=== PATIENT | female | born 1935 | race Caucasian/White ===

== ENCOUNTER 2016-11-02 08:00 | Outpatient (CLI) | payer MEDICARE, OTHER | END 2016-11-02 08:01 | disposition home or self-care (01) | DX: M81.0 Age-related osteoporosis without current pathological fracture (principal); E55.9 Vitamin D deficiency, unspecified; I10 Essential (primary) hypertension ==

== ENCOUNTER 2016-12-12 10:49 | Outpatient (CLI) | payer MEDICARE, OTHER | END 2016-12-12 10:50 | disposition home or self-care (01) | DX: G47.33 Obstructive sleep apnea (adult) (pediatric) (principal); G47.00 Insomnia, unspecified | CPT/HCPCS: 99214; G0463 ==

== ENCOUNTER 2017-02-20 13:05 | Outpatient (CLI) | payer MEDICARE, OTHER | END 2017-02-20 13:06 | disposition home or self-care (01) | LOC: SC 13:05 | PROVIDERS: ATTEND Nurse Practitioner Family | DX: G47.33 Obstructive sleep apnea (adult) (pediatric) (principal) | CPT/HCPCS: 99214; G0463; 99212 ==

== ENCOUNTER 2017-02-28 13:49 | Outpatient (CLI) | payer MEDICARE, OTHER ==
[2017-02-28 18:37] LABS: BASOPHILS # (AUTO) 0.1 10^3/uL (0.0-0.1); EOSINOPHILS # (AUTO) 0.1 10^3/uL (0.0-0.7); EOSINOPHILS % (AUTO) 1.4 %; HCT - HEMATOCRIT 43.4 % (37.0-47.0); HGB - HEMOGLOBIN 14.5 g/dL (12.0-16.0); LYMPHOCYTES # (AUTO) 1.9 10^3/uL (1.5-3.5); LYMPHOCYTES % (AUTO) 32.5 %; MEAN CORPUSCULAR HEMOGLOBIN 32.7 pg (27.0-31.0); MEAN CORPUSCULAR HGB CONC 33.4 g/dL (32.0-36.0); MEAN CORPUSCULAR VOLUME 97.9 fL (81.0-99.0); MEAN PLATELET VOLUME 9.2 fL (7.9-10.8); MONOCYTES # (AUTO) 0.5 10^3/uL (0.0-1.0); MONOCYTES % (AUTO) 8.7 %; NEUTROPHILS # (AUTO) 3.3 10^3/uL (1.5-6.6); NEUTROPHILS % (AUTO) 56.4 %; NUCLEATED RED BLOOD CELLS AUTO 0.1 /100WBC; RED BLOOD COUNT 4.43 10^6/uL (4.20-5.40); RED CELL DISTRIBUTION WIDTH 13.4 % (12.0-15.0); UNCORRECTED WHITE BLOOD COUNT 5.8 x10^3/uL; WHITE BLOOD COUNT 5.8 x10^3/uL (4.8-10.8)
[2017-02-28 18:54] LABS: CALCIUM 8.8 mg/dL (8.5-10.3); CREATININE 0.9 mg/dL (0.4-1.0); POTASSIUM 3.6 mmol/L (3.5-5.0)
== END 2017-02-28 13:50 | disposition home or self-care (01) ==
LOC: LAB.F 13:49
PROVIDERS: ATTEND Internal Medicine
DX: N18.3 Chronic kidney disease, stage 3 (moderate) (principal); R01.0 Benign and innocent cardiac murmurs
CPT/HCPCS: 36415; 80048; 85025

== ENCOUNTER 2017-03-10 12:56 | Emergency (ER) | payer MEDICARE, OTHER ==
[2017-03-10 13:04] VITALS: BP 142/67
--- NOTE | 2017-03-10 13:30 | ED Physician Documentation ---
PD HPI LOWER EXT INJURY - Stated complaint Stated Complaint: BILAT LEG SWOLLEN - Chief complaint Chief Complaint: Ext Problem - History obtained from History obtained from: Patient - History of Present Illness PD HPI LOW EXT INJURY LOCATION: Both Type of injury: Other (she had eye surgery 5 days ago and was to sit up due to it and place face downward (in chair/sitting position) often through the day. Thus she has been with feet down much of the time and sleepping recliner. Has had edema in both legs increased over baseline. Called her eye doctor and was directed to ED by nurse for concern of DVT. She is not having pain in legs per se.) Timing - onset: How many days ago (increasing the past 3-4 days) Timing - details: Gradual onset, Still present Associated symptoms: Swelling. No: Weakness, Numbness Similar symptoms before: Has not had sx before Recently seen: Surgery (eye surgery 5 days ago) Review of Systems Constitutional: denies: Fever, Chills Cardiac: reports: Pedal edema. denies: Chest pain / pressure, Palpitations, Calf pain Respiratory: denies: Dyspnea, Cough, Wheezing GI: denies: Vomiting, Diarrhea, Bloody / black stool Skin: denies: Abrasion (s), Laceration (s) Neurologic: denies: Generalized weakness, Near syncope PD PAST MEDICAL HISTORY - Past Medical History Past Medical History: Yes Cardiovascular: Hypertension Respiratory: Sleep apnea, CPAP use Endocrine/Autoimmune: None GI: Colon polyps : Incontinence, Frequency Psych: Claustrophobia Musculoskeletal: Osteoarthritis Derm: Eczema - Past Surgical History Past Surgical History: No General: Cholecystectomy, Appendectomy HEENT: Cataracts - Present Medications Home Medications: Ambulatory Orders Medication Instructions Recorded Confirmed Telmisartan [Micardis] 89 mg PO .FREQ 07/08/13 03/10/17 Hydrochlorothiazide 25 mg PO .FREQ 11/06/13 03/10/17 Metoprolol Succinate [Toprol Xl] 100 mg PO ONCE 11/06/13 03/10/17 Lutein 10 mg PO DAILY 11/24/15 03/10/17 Nystatin 1 each TOP DAILY 11/24/15 03/10/17 Risedronate Sodium 35 mg PO OAW 03/10/17 03/10/17 - Allergies Allergies/Adverse Reactions: Allergies Allergy/AdvReac Type Severity Reaction Status Date / Time ciprofloxacin [From Cipro] Allergy Mild Rash Verified 11/24/15 16:45 ciprofloxacin HCl * Allergy Mild Rash Verified 11/24/15 16:45 [From Cipro] codeine [Codeine] Allergy Unknown unknown Verified 11/24/15 16:45 corn Allergy Unknown unknown Verified 11/24/15 16:45 lisinopril Allergy Unknown unknown Verified 11/24/15 16:45 procaine HCl * Allergy Unknown unknown Verified 11/24/15 16:45 [From Novocain] losartan potassium * AdvReac Severe Unknown Verified 11/24/15 16:45 [From Cozaar] Tape Allergy Unknown unknown Uncoded 11/24/15 16:45 wheat Allergy Unknown unknown Uncoded 11/24/15 16:45 - Social History Does the pt smoke?: No Smoking Status: Never smoker Does the pt drink ETOH?: No Does the pt have substance abuse?: No - Immunizations Immunizations are current?: Yes PD ED PE NORMAL - Vitals Vital signs reviewed: Yes - General General: Alert and oriented X 3, No acute distress, Well developed/nourished - Neck Neck: Supple, no meningeal sign, No adenopathy, No JVD - Cardiac Cardiac: RRR, No murmur - Respiratory Respiratory: Clear bilaterally (no crackles/rales) - Abdomen Abdomen: Soft, Non tender - Derm Derm: Normal color, Warm and dry - Extremities Extremities: No calf tenderness / cord, Other (2+ edema in both lower legs up to proximal shins, pitting. Some chronic stasis color changes lower part and above ankles. Normal color, cap refill in toes. Palpable DP pulses in feet. ) - Neuro Neuro: Alert and oriented X 3, No motor deficit, Normal speech Results - Vitals Vitals: Vital Signs - 24 hr 03/10/17 13:01 Temperature 36.4 C L Heart Rate 75 Respiratory 18 Rate Blood Pressure 142/67 H O2 Saturation 95 Oxygen O2 Source Room air - Labs Labs: Laboratory Tests 03/10/17 14:10 Sodium 139 Potassium 3.9 Chloride 104 Carbon Dioxide 28 Anion Gap 7.0 BUN 30 H Creatinine 1.1 H Estimated GFR (MDRD) 48 L Glucose 119 H Calcium 9.0 Magnesium 1.9 Total Bilirubin 0.3 AST 21 ALT 19 Alkaline Phosphatase 65 Total Protein 6.2 L Albumin 3.4 Globulin 2.8 Albumin/Globulin Ratio 1.2 Lipase 48 - Rads (name of study) duplex U/S Radiology: Prelim report reviewed (no DVT) PD MEDICAL DECISION MAKING - ED course Complexity details: considered differential (not really tender in calves, but is at risk for DVT, so got U/S which showed patent flow. Presume edema is from gravity of sitting up too much with feet down (due to recent eye surgery). She can elevate legs more and can use compressive stockings. Does not seem fluid overloaded per se, so would not change her diuretic. ), d/w patient, d/w family (daughter) Departure - Departure Disposition: Home, Self Care Clinical Impression: Bilateral leg edema, Lateral pain of left hip Clinical Impression: (Ruled Out): Deep vein thrombosis Condition: Stable Record reviewed to determine appropriate education?: Yes Instructions: ED Edema Legs Bilateral Follow-Up: Fernando Ruelas MD [Primary Care Provider] - Comments: No signs of blood clots on the ultrasound at this time. Elevate your legs periodically through the day. Try some compressive stockings (knee high) to help reduce the swelling. Continue usual medications. Presume the swelling is from having had your legs down more. It should improve as you elevate the legs more. For the hip pain, use some Ibuprofen 400 mg twice daily for 5 days and add Tylenol to it 3-4 times daily as needed. Discharge Date/Time: 03/10/17 16:00
[2017-03-10 14:27] LABS: ALBUMIN/GLOBULIN RATIO 1.2 (1.0-2.2); BILIRUBIN,TOTAL 0.3 mg/dL (0.2-1.0); CREATININE 1.1 mg/dL (0.4-1.0); MAGNESIUM 1.9 mg/dL (1.7-2.8); POTASSIUM 3.9 mmol/L (3.5-5.0); TOTAL PROTEIN 6.2 g/dL (6.7-8.2)
--- NOTE | 2017-03-10 15:21 | Ultrasound Preliminary Report ---
Exam: US Duplex Ext Veins Bilateral IMPRESSION: 1. No evidence of right or left lower extremity deep venous thrombosis. [facility] SITE ID: [id number]
--- NOTE | 2017-03-10 15:23 | Ultrasound Report ---
EXAM: BILATERAL LOWER EXTREMITY VENOUS ULTRASOUND EXAM DATE: 03/10/2017 02:57 PM. CLINICAL HISTORY: Legs swelling, 5 days after eye surgery. COMPARISON: None. TECHNIQUE: Real-time sonographic vascular imaging was performed by the electronic security technician through the lower extremities utilizing both color-flow and Doppler spectral analysis. Multiple used equipment sales representative static i mages were saved for review. FINDINGS: Right: Common Femoral Vein (CFV): Normal. CFV-GSV Junction: Normal. Profunda Femoral Vein (PFV): Normal. Femoral Vein (FV) Prox: Normal. Femoral Vein (FV) Mid: Normal. Femoral Vein (FV) Dist: Normal. Popliteal Vein: Normal. Posterior Tibial Veins: Normal. Peroneal Veins: Normal. Left: Common Femoral Vein (CFV): Normal. CFV-GSV Junction: Normal. Profunda Femoral Vein (PFV): Normal. Femoral Vein (FV) Prox: Normal. Femoral Vein (FV) Mid: Normal. Femoral Vein (FV) Dist: Normal. Popliteal Vein: Normal. Posterior Tibial Veins: Normal. Peroneal Veins: Normal. Other: None. IMPRESSION: 1. No evidence of right or left lower extremity deep venous thrombosis. [facility] Referring Provider Line: [phone] SITE ID: [id number]
[2017-03-10] MEDS ORDERED: IBUPROFEN 400 MG TABLET PO STA (15:42)
[2017-03-10] MEDS ORDERED: ACETAMINOPHEN 325 MG TABLET PO STA (15:42)
[2017-03-10] MEDS ORDERED: ACETAMINOPHEN 325 MG TABLET PO ONE (15:44)
[2017-03-10] MEDS ORDERED: IBUPROFEN 400 MG TABLET PO ONE (15:44)
== END 2017-03-10 16:00 | disposition home or self-care (01) ==
LOC: ED 12:56
DX: R60.1 Generalized edema (principal); M25.552 Pain in left hip; I10 Essential (primary) hypertension; G47.30 Sleep apnea, unspecified; Z86.010 Personal history of colon polyps; M19.90 Unspecified osteoarthritis, unspecified site
CPT/HCPCS: 36415; 80053; 83690; 83735; 93970; 99283; A9270

== ENCOUNTER 2017-04-24 13:29 | Outpatient (CLI) | payer MEDICARE, OTHER | END 2017-04-24 13:30 | disposition home or self-care (01) | LOC: SC 13:29 | PROVIDERS: ATTEND Nurse Practitioner Family | DX: G47.33 Obstructive sleep apnea (adult) (pediatric) (principal) | CPT/HCPCS: 99214; G0463; 99212 ==

== ENCOUNTER 2017-07-09 14:57 | Outpatient (CLI) | payer MEDICARE, OTHER | END 2017-07-09 14:58 | disposition home or self-care (01) | LOC: SC 14:57 | PROVIDERS: ATTEND Nurse Practitioner Family | DX: G47.33 Obstructive sleep apnea (adult) (pediatric) (principal) | CPT/HCPCS: 99214; G0463; 99212 ==

== ENCOUNTER 2017-12-30 12:53 | Outpatient (CLI) | payer MEDICARE, OTHER ==
--- NOTE | 2017-12-31 17:32 | DEXA Report ---
DEXA SCAN: 12/30/2017 CLINICAL INDICATION: Osteoporosis. TECHNIQUE: Dual energy x-ray absorptiometry (DXA) was performed on a [employer] system. Regions measured are the AP spine, femoral neck, and, if needed, forearm. COMPARISON: None. In accordance with the International Society for Clinical Densitometry (ISCD) guidelines, data from previous exams may be reanalyzed using current recommendations and techniques. This is done to allow a more accurate basis for comparison with the current study. FINDINGS The data for the lumbar spine is as follows: REGION BMD (g/cm/cm) T-SCORE Z-SCORE L1 0.834 -2.5 -1.7 L2 0.808 -3.3 -2.5 L3 1.030 -1.4 -0.6 L4 0.971 -1.9 -1.1 L1-L4 0.911 -2.2 -1.4 L2-L4 0.932 -2.2 -1.4 NOTE: All evaluable vertebrae are used for classification. The data for the hip is as follows: REGION BMD (g/cm/cm) T-SCORE Z-SCORE Neck 0.780 -1.9 -0.3 TOTAL 0.811 -1.6 -0.2 NOTE: The femoral neck or total proximal femur, whichever is lowest, is used for classification. IMPRESSION WHO CLASSIFICATION BASED ON THE INTERNATIONAL REFERENCE STANDARD IS OSTEOPENIA. FRACTURE RISK IS INCREASED. RECOMMENDATION: Patients with diagnosis of osteoporosis or osteopenia should have regular bone mineral density assessment. For those eligible for Medicare, routine testing is allowed once every 2 years. Testing frequency can be increased for patients who have rapidly progressing disease or for those who are receiving medical therapy to restore bone mass. COMMENT World Health Organization (WHO) definitions for osteoporosis and osteopenia: NORMAL BMD: T-score at 1.0 or higher, fracture risk is low. OSTEOPENIA BMD: T-score between 1.0 and -2.5, fracture risk is increased. OSTEOPOROSIS BMD: T-score at 2.5 or lower, fracture risk high. National Osteoporosis Foundation recommends: 1. Obtain adequate dietary calcium (at least 1200 mg per day) and vitamin D (400 -800 international units per day). 2. Participate, as appropriate, in regular weightbearing and muscle- strengthening exercise. 3. Avoid tobacco use and reduce alcohol and caffeine intake. 4. For more detailed information see the website at www.NOF.org. TD: 12/30/2017 14:07 YOMAIRA
== END 2017-12-30 12:54 | disposition home or self-care (01) ==
LOC: DI 12:53
PROVIDERS: ATTEND Internal Medicine
DX: M81.0 Age-related osteoporosis without current pathological fracture (principal)
CPT/HCPCS: 77080

== ENCOUNTER 2018-04-22 08:22 | Outpatient (CLI) | payer MEDICARE, OTHER ==
[2018-04-22 11:52] LABS: BUN - BLOOD UREA NITROGEN 15 mg/dL (6-20); CALCIUM 8.9 mg/dL (8.5-10.3); CARBON DIOXIDE - CO2 31 mmol/L (21-32); CHLORIDE 100 mmol/L (101-111); CHOLESTEROL 173 mg/dL; CREATININE 0.9 mg/dL (0.4-1.0); GFR - MDRD 60 (>89); GLUCOSE 96 mg/dL (70-100); HDL CHOLESTEROL 58 mg/dL; LDL CHOLESTEROL,CALCULATED 93 mg/dL; LDL/HDL RATIO 1.6 (<4.4); SODIUM 137 mmol/L (135-145); VLDL CHOLESTEROL 22 mg/dL
== END 2018-04-22 08:23 | disposition home or self-care (01) ==
LOC: LAB.F 08:22
PROVIDERS: ATTEND Internal Medicine
DX: I10 Essential (primary) hypertension (principal); Z13.1 Encounter for screening for diabetes mellitus
CPT/HCPCS: 36415; 80048; 80061; 83036; 83721

== ENCOUNTER 2018-07-29 06:55 | Outpatient (CLI) | payer MEDICARE, OTHER | END 2018-07-29 06:56 | disposition EMS.NT | LOC: EMS 06:55 | PROVIDERS: ATTEND Surgery | DX: M53.3 Sacrococcygeal disorders, not elsewhere classified (principal); W18.39XA Other fall on same level, initial encounter; Y92.032 Bedroom in apartment as the place of occurrence of the external cause ==

== ENCOUNTER 2018-07-29 13:37 | Outpatient (CLI) | payer MEDICARE, OTHER | END 2018-07-29 13:38 | disposition short-term general hospital (02) | LOC: EMS 13:37 | PROVIDERS: ATTEND Surgery | DX: R41.82 Altered mental status, unspecified (principal); M54.2 Cervicalgia; R11.0 Nausea | CPT/HCPCS: A0425; A0427 ==

== ENCOUNTER 2018-12-17 14:51 | Outpatient (CLI) | payer MEDICARE, OTHER | END 2018-12-17 14:52 | disposition home or self-care (01) | LOC: SC 14:51 | PROVIDERS: ATTEND Nurse Practitioner Family | DX: G47.33 Obstructive sleep apnea (adult) (pediatric) (principal) | CPT/HCPCS: 99214; G0463; 99212 ==

== ENCOUNTER 2020-05-16 15:39 | Outpatient (CLI) | payer MEDICARE, OTHER ==
--- NOTE | 2020-05-16 16:08 | SLEEP CARE CONSULTATION ---
Information from patient questionnaire entered by Brandi Valentino. I have reviewed and concur with the information entered by Brandi Valentino. This document represents the service I personally performed and the decisions made by me, Samantha Agrawal RN, MSN, TRANSPORTATION AGENT. History of Present Illness Service Date and Time: 05/16/2020 1539 Previous diagnosis: Severe, Obstructive Sleep Apnea-Hypopnea Syndrome AHI: 46.8 Reason for follow up: other (2-month followup) Equipment type: CPAP Equipment obtained from: [employer] Mask style: Full face Prior sleep studies: Yes Year and Where: 2012 [facility] Type of Sleep Study: Polysomnography Sleep Study - Results Prior sleep studies: Yes Year and Where: 2012 [facility] CPAP Compliance Data - Data Reviewed with Patient Average duration of nightly device use: 7 h 9 min Compliance rate %: 100 Current pressure setting (cmH2O): 12-15 Humidity settin Heated hose settin Average residual AHI: 17.2 Central apnea: 1.9 Obstructive apnea: 7.6 Hypopnea: 7.6 Average large leak: 1 h 28 min Subjective Patient concerns: reports: air blowing in eyes, mask leak noise, dry mouth, nose, throat. denies: aerophagia, mask discomfort, condensation in mask/hose, nasal congestion, epistaxis Current pressure setting perceived as: comfortable On therapy, patient: reports: more rested overall (but still fatigued). denies: drowsiness while driving (not driving ) Initial [place] Sleepiness Scale score: 14 (in 2012) Allergies and Home Medications Known drug allergies: No Home medication list reviewed: No (nochanges) Review of Systems Review of systems same as previous: Yes Physical Exam Height: 5 ft 8 in Weight: 200 lb (home weight - stable) Body Mass Index: 30.4 BMI Classification: Obese Impression and Plan 1. Obstructive Sleep Apnea-Hypopnea Syndrome, severe, with good treatment compliance and elevated moderate residual AHI. On CPAP therapy, the patient is more rested overall. Pressure change reduced AHI some. She had her current mask refitted but not new style. The patients pressure will be changed to autoCPAP 15 cmH20 For elevation of residual AHI after review of compliance reports the last couple of years. Patient advised to contact me if pressure change is uncomfortable so that it can be adjusted. Goals for apnea control discussed. Mask refitting also ordered but to change style to a nasal mask as her best residual AHI found on nasal mask. In addition a chinstrap fitting will be completed to assist keep her mouth closed and reduce oral dryness. It has been found that sometimes a full face mask can cause increased apnea by pushing jaw back. Oral dryness can be reduced by adjusting humidity setting higher or heated hose lower or by adjusting both settings. I will have [facility] RT show patient how to change. Patient's apnea severity and rationale for treatment to reduce apnea, improve sleep quality and reduce cardiovascular and cerebrovascular events was reviewed. I also reviewed the benefit of consistent device use of CPAP for hypertension. * * Change CPAP pressure to 15 cmH2O * Mask and chinstrap fitting * Instruct how to adjust humdity and heated hose. * Notify me if snoring with mask or feeling that the pressure is too much or too little * Attempt to lose weight * Call this office if any problems using CPAP * Return for follow up in 1-2 months , or sooner if concerns arise Visit Type: Telehealth Phone Patient Location: Home Patient agrees and consents to this telehealth visit type: Yes Patient agrees to have their insurance billed: Yes Time Spent with Patient (minutes): 15 Provider Statement: I spent 100% of the Telehealth Phone Call with the patient with greater than 50% spent counseling the patient and coordination of care.
== END 2020-05-16 15:40 | disposition home or self-care (01) ==
LOC: SC 15:39
PROVIDERS: ATTEND Nurse Practitioner Family
DX: G47.33 Obstructive sleep apnea (adult) (pediatric) (principal); E66.9 Obesity, unspecified; Z68.30 Body mass index [BMI] 30.0-30.9, adult

== ENCOUNTER 2020-07-06 12:03 | Outpatient (CLI) | payer MEDICARE, OTHER ==
--- NOTE | 2020-07-06 11:57 | SLEEP CARE CONSULTATION ---
Information from patient questionnaire entered by Brandy Thorne. I have reviewed and concur with the information entered by Brandy Thorne. This document represents the service I personally performed and the decisions made by me, Samantha Agrawal, RN, MSN, SKID ROAD MAN. History of Present Illness Service Date and Time: 07/06/2020 1100 Previous diagnosis: Severe, Obstructive Sleep Apnea-Hypopnea Syndrome AHI: 46.8 (in 2013) Reason for follow up: other (2 month with pressure change) Equipment type: CPAP Equipment obtained from: [employer] Mask style: Full face Last cushion change: 1st of month Prior sleep studies: Yes Year and Where: 2013 - [facility] Type of Sleep Study: Polysomnography CPAP Compliance Data - Data Reviewed with Patient Average duration of nightly device use: 6 hr 51 min Compliance rate %: 93.3 (60 days) Current pressure setting (cmH2O): 15 Humidity settin Heated hose settin Average residual AHI: 18.6 Central apnea: 1.7 Obstructive apnea: 9.7 Hypopnea: 7.2 Average large leak: 53 min 27 sec Subjective Patient concerns: reports: mask leak noise, dry mouth, nose, throat. denies: aerophagia, mask discomfort, air blowing in eyes, condensation in mask/hose, nasal congestion, epistaxis, other Observed to snore while using device: No Current pressure setting perceived as: comfortable On therapy, patient: reports: sleeping better. denies: drowsiness while driving (does not drive) Initial [place] Sleepiness Scale score: 14 (in 2012) Allergies and Home Medications Home medication list reviewed: No (no changes stated ) Review of Systems Review of systems same as previous: Yes Physical Exam Height: 5 ft 8 in Impression and Plan 1. Obstructive Sleep Apnea-Hypopnea Syndrome, severe, with good treatment compliance and moderate elevation of residual AHI despite CPAP pressure adjustment and reduced mask leaks. On CPAP therapy, the patient has better sleep quality but is not feeling more rested that could be from the sleep disruption from mask leaks. She is finding it hard to adjust mask intermittently to resolve mask leaks. She also states that it is hard to change her mask cushion monthly. The mask leaks could also be contributing to her oral dryness. Thus I will again order a mask refitting. Perhaps a new style will be more beneficial. Her last mask fitting the RT adjusted her mask. In addition, I will have the RT adjust her humidity and heated hose to reduce oral dryness further. The patients pressure will be changed to auto CPAP 17-18 cmH20 For elevation of residual AHI. Patient advised to contact me if pressure change is uncomfortable so that it can be adjusted. Goals for apnea control discussed. Patient's apnea severity and rationale for treatment to reduce apnea, improve sleep quality and reduce cardiovascular and cerebrovascular events was reviewed. The patient was set up with a video visit but her cell phone is hard for her to use and is not a smart phone so a telephone visit was instead completed per patient request. Due to connection / hearing issues, had to be redialed. * * Change auto CPAP pressure to 17-18 cmH2O * Mask refitting * Notify me if snoring with mask or feeling that the pressure is too much or too little * Attempt to lose weight * Call this office if any problems using CPAP * Return for follow up in 1-2 months , or sooner if concerns arise Visit Type: Telehealth Phone Video Type: Doximity Location of Provider: Home Patient agrees and consents to this telehealth visit type: Yes Patient agrees to have their insurance billed: Yes Time Spent with Patient (minutes): 12 Provider Statement: I spent 100% of the Telehealth Phone Call with the patient with greater than 50% spent counseling the patient and coordination of care.
== END 2020-07-06 12:04 | disposition home or self-care (01) ==
LOC: SC 12:03
PROVIDERS: ATTEND Nurse Practitioner Family
DX: G47.33 Obstructive sleep apnea (adult) (pediatric) (principal)

== ENCOUNTER 2020-08-10 12:09 | Outpatient (CLI) | payer MEDICARE, OTHER ==
--- NOTE | 2020-08-10 11:56 | SLEEP CARE CONSULTATION ---
Information from patient questionnaire entered by Brandy Thorne. I have reviewed and concur with the information entered by Brandy Thorne. This document represents the service I personally performed and the decisions made by me, Samantha Agrawal, RN, MSN, ELOCUTION TEACHER. History of Present Illness Service Date and Time: 08/10/2020 1100 Previous diagnosis: Severe, Obstructive Sleep Apnea-Hypopnea Syndrome AHI: 46.8 (in 2013) Reason for follow up: one month Equipment type: CPAP Equipment obtained from: [employer] Mask style: Full face Last cushion change: 1st of the month Prior sleep studies: Yes Year and Where: 2013 - Located within [facility] Type of Sleep Study: Polysomnography HPI additional information: I reviewed past visit note to prepare for this visit. Patient is only able to do a televisit at this time as noted at last visit. The CPAP pressure was changed to autoCPAP [id number] to treat moderate elevation of residual AHI. A mask refitting was ordered to assist with patient mask leaks that could be from difficulty changing mask cushion and ability to adjust headgear. The RT was also to adjust her humidity and heated hose to reduce oral dryness. When I reviewed the above with patient, the new pressure is comfortable. She had questions as to specifics of changes in compliance AHI since new pressure and was pleased with the results. She continues to struggle with getting the mask to seal most nights. She has some very good nights where she slept through without mask problems. But states no matter how well she sleeps, she is very tired during the day and will doze. It is unknown how long her increase in fatigue has been per patient. When asked, her last follow up with her PCP was before COVID pandemic and all labs were good. She also asked about trying a nasal mask again. She remembers using a nasal mask in the past and does not recall why it was changed to full face mask. She knows she did not use a chinstrap with the nasal mask as she did not like it. She has oral dryness day and night and it seems a little better at night since changes to humidity / heated hose. CPAP Compliance Data - Data Reviewed with Patient Average duration of nightly device use: 5 hr 26 min Compliance rate %: 76.7 Current pressure setting (cmH2O): 17-18 Humidity settin Heated hose settin Average residual AHI: 13.9 (90% pressure is 17.2cmH20) Central apnea: 0.6 Obstructive apnea: 5.3 Hypopnea: 10.1 Average large leak: 2 hr 43 min Subjective Patient concerns: reports: mask leak noise (most nights), dry mouth, nose, throat. denies: aerophagia, mask discomfort, air blowing in eyes, nasal congestion, epistaxis Observed to snore while using device: No Current pressure setting perceived as: comfortable On therapy, patient: reports: sleeping better (intermittently but still very tired even if slept well. ) Initial [place] Sleepiness Scale score: 14 (in 2012) Allergies and Home Medications Home medication list reviewed: Yes (no changes except added vitamins) Review of Systems Review of systems same as previous: Yes Physical Exam Height: 5 ft 8 in Impression and Plan 1. Obstructive Sleep Apnea-Hypopnea Syndrome, severe, with good treatment compliance and elevation of residual AHI. The residual has reduced from 21 to 13.9 on the new autoCPAP range. On CPAP therapy, the patient has better sleep quality intermittently but is not feeling any more rested. The patients pressure will be changed to autoCPAP 18-19 cmH20 For elevation of residual AHI. The higher pressure is causing more mask leaks but resulting in better control of her apnea and patient agreed with plan. Patient advised to contact me if pressure change is uncomfortable so that it can be adjusted. Goals for apnea control discussed. I will also have her mask again refitted but in recumbent position as patient states this has been done with her sitting up. Hopefully this will assist in reduction of mask leaks. I also checked several of her past notes after her telehealth visit to see why her nasal mask was stopped and changed to current style. It appears mask change to full face mask was to assist with oral dryness. Patient recalls not liking a chinstrap but notes reflect that she was having difficulty getting a chinstrap from past [employer] vendor. Thus I will have her fitted with a nasal mask and chinstrap as indicated to see if more comfortable for her in fit, mask leaks and oral dryness. For chronic oral dryness, she is advised to consider an oral dryness product and given several names. She is also to check with her dentist as to best options. 2. Fatigue, She reports she has had increased fatigue and sleepiness symptoms for unknown period of time. Last seen by her PCP was before pandemic early this year. She states at that time her labs were normal and no concerns. The reduction of residual AHI with pressure change did not reduce fatigue. Though is it still elevated above goal of below 5 and could be a contributing cause which is addressed above. I advised her to follow up with her PCP for further evaluation of her increased sleepiness symptoms and she agreed with plan. * * Changeauto CPAP pressure to 18-19 cmH2O * mask refitting * Implement methods to reduce oral dryness. * Notify me if snoring with mask or feeling that the pressure is too much or too little * Follow up with PCP for further evaluation of fatigue. * Return for follow up in 1-2 months , or sooner if concerns arise Visit Type: Telehealth Phone ([facility]) Patient Location: Home Location of Provider: Home Patient agrees and consents to this telehealth visit type: Yes Patient agrees to have their insurance billed: Yes Time Spent with Patient (minutes): 14 Provider Statement: I spent 100% of the Telehealth Phone Call with the patient with greater than 50% spent counseling the patient and coordination of care.
== END 2020-08-10 12:10 | disposition home or self-care (01) ==
LOC: SC 12:09
PROVIDERS: ATTEND Nurse Practitioner Family
DX: G47.33 Obstructive sleep apnea (adult) (pediatric) (principal)

== ENCOUNTER 2020-09-09 13:02 | Outpatient (CLI) | payer MEDICARE, OTHER ==
[2020-09-09 11:55] VITALS: BP 120/70
--- NOTE | 2020-09-09 11:55 | SLEEP CARE CONSULTATION ---
Information from patient questionnaire entered by Brandy Thorne. I have reviewed and concur with the information entered by Brandy Thorne. This document represents the service I personally performed and the decisions made by me, Samantha Agrawal, RN, MSN, HR REPRESENTATIVE. History of Present Illness Service Date and Time: 09/09/2020 1100 Previous diagnosis: Severe, Obstructive Sleep Apnea-Hypopnea Syndrome AHI: 46.8 (in 2012) Reason for follow up: one month (with pressure change) Equipment type: CPAP Equipment obtained from: [employer] Mask style: Full face (new mask given 08/23/20 but new nasal mask not comfortable and large mask leaks despite adjustment/ unable to use chinstrap in past) Backup mask available: Yes (old mask ) Last cushion change: 1 month Prior sleep studies: Yes Year and Where: 2012 - [facility] Type of Sleep Study: Polysomnography HPI additional information: I reviewed past titration study detailed results and several of follow up visits and pressure changes and results from 10/02 to last month. Data summarized below to assist with this visit. Titration showed that she slept most of time on [id number] with good control of apnea even in REM sleep. She wore a sm/med Wisp nasal mask. Humidity and heated hose 2/2 and CFLEX 3. Wt 190 Last weight recorded 200 pounds/ Mask style order after 01/04 was to add a chinstrap or try a full face mask. Full face mask first noted in 03/14/20 note and large mask leaks of 1 hour 17 minutes. Pressure started to be elevated for complaint of air hunger. Then adjusted for increased residual AHI. Of all the pressures reviewed thus far, it seems [id number] has the best residual AHI and the least mask leaks with more time spent sleeping on that pressure. Oral dryness both day and night have been reported and addressed with adjustment of humidity / heated hose and updated CPAP when indicated as had a better humidity system. Patient states she had a elevated blood pressure to 200 at dentist 09/06/20 so tooth not pulled as planned. Notified PCP and monitoring blood pressure frequently since with highest blood pressure 170 immediately after dentist 09/06/20 but in normal range since. Reviewed ER precautions, patient states aware. Has appointment with PCP 09/12/20. Blood pressure normal range today 120/70. CPAP Compliance Data - Data Reviewed with Patient Average duration of nightly device use: 5 hr 12 min Compliance rate %: 76.7 Current pressure setting (cmH2O): 18-19 Humidity settin Heated hose settin Average residual AHI: 15.6 (90% pressure 18.2cmH20) Central apnea: 0.4 Obstructive apnea: 1.1 Hypopnea: 13.5 Average large leak: 2 hr 49 min Subjective Patient concerns: reports: mask discomfort, air blowing in eyes (wears eye mask protection), mask leak noise (waking to mask leaks frequently affecting ability to sleep. ), dry mouth, nose, throat (dry mouth day and night continues - worse with CPAP / no oral rinses ), other (nasal mask did not work- ). denies: aerophagia, condensation in mask/hose, nasal congestion, epistaxis Observed to snore while using device: No (not waking to snore ) Current pressure setting perceived as: comfortable On therapy, patient: reports: sleeping better (when mask fits / uses bathroom 1- 3 times goes right back to sleep.), being more awake and alert during the day, more rested overall. denies: awakening more refreshed, drowsiness while driving (does not drive) Initial [place] Sleepiness Scale score: 14 (in 2012) Allergies and Home Medications Known drug allergies: Yes Home medication list reviewed: No (states no change since last vist=it ) Review of Systems Review of systems same as previous: No ([facility]- [facility] -appt PCP 09/12/20 ) Physical Exam Blood Pressure: 120/70 (by patient today) Height: 5 ft 8 in Weight: 195 lb (lost a few pounds ) Body Mass Index: 29.6 BMI Classification: Overweight Impression and Plan 1. Obstructive Sleep Apnea-Hypopnea Syndrome, severe, with good treatment compliance and apnea control. On CPAP therapy, the patient has better sleep quality and is more rested overall. Patient has been struggling with finding a mask that fits well and is waking often to mask leaks. Mask leaks also seem to be contributing to her elevation of residual. After reviewing several visit notes and her titration study results, I will change her mask back to the Wisp nasal mask as she had the best results in comfort, control of mask leaks and best control of residual AHI. I will also change her autoCPAP pressure to [id number]. I informed patient that if mask and pressure do not have better outcome then a manual titration study is indicated. Oral dryness can be reduced by reducing mask leaks and perhaps reducing heated hose as humidity is at maximum. Patient advised that chronic oral dryness can affect dental health and advised to follow up with dentist. In addition, there are oral dryness products that can be used to reduce dryness such as Biotene products, Dry mouth rinse and Xylomelts. Patient to discuss best option with dentist.Patient's apnea severity and rationale for treatment to reduce apnea, improve sleep quality and reduce cardiovascular and cerebrovascular events was reviewed. I also reviewed the benefit of consistent device use of CPAP for hypertension. * Change auto CPAP pressure to 11-14 cmH2O * Change mask to Wisp nasal mask * Implement methods to reduce oral dryness. * Notify me if snoring with mask or feeling that the pressure is too much or too little * Call this office if any problems using CPAP * follow up with PCP as planned for blood pressure evaluation, bring monitoring records. * Return for follow up in 1-[address] Murphy, or sooner if concerns arise Visit Type: Telehealth Phone ([employer]) Patient Location: Home Location of Provider: Home Patient agrees and consents to this telehealth visit type: Yes Patient agrees to have their insurance billed: Yes Time Spent with Patient (minutes): 30 plus 15 minutes review past sleep records to assist with visit Provider Statement: I spent 100% of the Telehealth Phone Call with the patient with greater than 50% spent counseling the patient and coordination of care.
== END 2020-09-09 13:03 | disposition home or self-care (01) ==
LOC: SC 13:02
PROVIDERS: ATTEND Nurse Practitioner Family
DX: G47.33 Obstructive sleep apnea (adult) (pediatric) (principal)

== ENCOUNTER 2021-10-05 14:23 | Outpatient (CLI) | payer MEDICARE, OTHER ==
--- NOTE | 2021-10-05 14:33 | SLEEP CARE CONSULTATION ---
Information from patient questionnaire entered by Hector Shelley MA. I have reviewed and concur with the information entered by Hector Shelley MA. This document represents the service I personally performed and the decisions made by , Daksha Win ARNP. History of Present Illness Service Date and Time: 10/05/2021 1423 Previous diagnosis: Severe, Obstructive Sleep Apnea-Hypopnea Syndrome AHI: 46.8 (in 2012) Reason for follow up: annual (LAST SEEN 08/2020,), other (LAST SEEN 08/2020 ) Equipment type: CPAP Equipment obtained from: [employer] (getting supplies as needed) Mask style: Nasal (over the nose) Backup mask available: Yes (old mask) Last cushion change: yesterday Prior sleep studies: Yes Year and Where: 2012 - [facility] Type of Sleep Study: Polysomnography HPI additional information: JASON TORRES was diagnosed to have severe, AHI 46.8, obstructive sleep apnea- hypopnea syndrome and returns via video telehealth visit today for CPAP therapy annual follow-up. Sleep Study - Results Type of Sleep Study: Polysomnography Prior sleep studies: Yes Year and Where: 2013 - [facility] CPAP Compliance Data - Data Reviewed with Patient Average duration of nightly device use: 7 HOURS 35 MINUTES Compliance rate %: 98.3 Current pressure setting (cmH2O): 12-16 Humidity settin Heated hose settin Average residual AHI: 10.9 Average large leak: 5 MINUTES 1 SECONDS Subjective Patient concerns: reports: dry mouth, nose, throat (using a lot of water), other (mouth is coming open). denies: aerophagia, mask discomfort, air blowing in eyes, mask leak noise, condensation in mask/hose, nasal congestion, epistaxis Observed to snore while using device: No Current pressure setting perceived as: comfortable On therapy, patient: reports: sleeping better, awakening more refreshed, being more awake and alert during the day, more rested overall, other (she is having more tiredness during the day and noted elevated AHI). denies: drowsiness while driving Initial [place] Sleepiness Scale score: 14 (in 2011) Current [place] Sleepiness Scale score: 14 Allergies and Home Medications Home medication list reviewed: Yes (no changes) Allergy and home medication list: Allergies ciprofloxacin [From Cipro] Allergy (Mild, Verified 11/24/15 16:45) Rash ciprofloxacin HCl * [From Cipro] Allergy (Mild, Verified 11/24/15 16:45) Rash codeine [Codeine] Allergy (Unknown, Verified 11/24/15 16:45) unknown corn Allergy (Unknown, Verified 11/24/15 16:45) unknown lisinopril Allergy (Unknown, Verified 11/24/15 16:45) unknown procaine HCl * [From Novocain] Allergy (Unknown, Verified 11/24/15 16:45) unknown losartan potassium * [From Cozaar] Adverse Reaction (Severe, Verified 11/24/15 16:45) Unknown Tape Allergy (Unknown, Uncoded 11/24/15 16:45) unknown wheat Allergy (Unknown, Uncoded 11/24/15 16:45) unknown Review of Systems Review of systems same as previous: Yes (no changes) Physical Exam Vital signs obtained and entered by: Telehealth visit Height: 5 ft 8 in Impression and Plan 1. Obstructive Sleep Apnea-Hypopnea Syndrome, severe, with good treatment compliance and fair apnea control with elevated residual AHI. On CPAP therapy, the patient has better sleep quality and is more rested overall. Her AHI is elevated but after reviewing her chart the past few years her residual AHI is the best in today's report. I will not make any pressure changes at this time. Patient has been using a nasal mask but her mouth is getting very dry. She has not been able to use the chin strap to keep mouth closed. She thinks she may need to change back to a full face mask but has no supplies. I will write for a mask refitting for the full face masks. Patient has a Dreamstation that appears to have been set up in 2013. Patient has already registered their device for the recall. Patient denies any black particles seen in machine or hoses, any unusual odors coming from device. Patient has not experienced any physical symptoms such as upper airway irritation, headache, skin or eye irritation, asthma, nausea/vomiting, difficulty breathing or chest pain. If patient is not able to sleep due to waking up choking, gasping for air or other respiratory distress that they may decide to continue using it until it is either replaced or repaired. Since the patients current machine is at least 5 years old, the patient is opting to update their device with a device that is not on the recall. Patient voiced understanding and agreement with plan. Patient's apnea severity and rationale for treatment to reduce apnea, improve sleep quality and reduce cardiovascular and cerebrovascular events was reviewed. I also reviewed the benefit of consistent device use of CPAP for hypertension. * Continue auto CPAP pressure at 12-16 cmH2O * Update device * Mask refitting for full face mask * Update supplies * Notify me if snoring with mask or feeling that the pressure is too much or too little * Attempt to lose weight * Call this office if any problems using CPAP * Return for follow up in 1 year, or sooner if concerns arise Counseling Topics: Weight loss health impact Visit Type: Telehealth Video Video Type: VSee Patient Location: Home Location of Provider: Office Patient agrees and consents to this telehealth visit type: Yes Patient agrees to have their insurance billed: Yes Time Spent with Patient (minutes): 28 Provider Statement: I spent 100% of the Telehealth Video Call with the patient with greater than 50% spent counseling the patient and coordination of care.
== END 2021-10-05 14:24 | disposition home or self-care (01) ==
LOC: SC 14:23
PROVIDERS: ATTEND Nurse Practitioner Family
DX: G47.33 Obstructive sleep apnea (adult) (pediatric) (principal)